=== PATIENT | female | born 1995 ===

== ENCOUNTER → 2024-05-25 | Outpatient (CLI) | payer OTHER ==
[2024-05-26 17:10] LABS: ESTRADIOL BY IMMUNOASSAY 51 pg/mL
[2024-05-29 23:48] LABS: TESTOSTERONE, FREE MASS SPEC 2.2 pg/mL (0.8-7.4)
== END ==
LOC: LAB 15:45 → LAB SHORT 15:45
PROVIDERS: Registered Nurse Community Health
DX: E34.9 Endocrine disorder, unspecified (principal)
CPT/HCPCS: 82670; 83036; 84402; 84443